=== PATIENT | female | born 1975 | race Caucasian/White ===

== ENCOUNTER 2017-02-21 01:28 | Emergency (ER) | payer MEDICAID ==
[~2017-02-21] VITALS: Ht 160 cm; Wt 79.1 kg
[~2017-02-21 01:28] MED LIST: LORT5TAB PO; Z.0.NO CURRENT MEDS
[2017-02-21 01:31] VITALS: BP 143/84; PULSE 85; RESP 16; TEMP 97.6; O2SAT 100
[2017-02-21] MEDS ORDERED: ADDE10 PO (01:44)
--- NOTE | 2017-02-21 02:15 | RADRPT ---
EXAM DATE/TIME: 02/21/2017 01:45 [place] COMPARISON: No previous studies available for comparison. INDICATIONS : Right shoulder pain. MEDICAL HISTORY : None. SURGICAL HISTORY : None. ENCOUNTER: Initial ACUITY: 1 day PAIN SCORE: 8/10 LOCATION: Right shoulder. FINDINGS: Multiple view examination of the right shoulder demonstrates no evidence of fracture or dislocation. The glenohumeral and acromioclavicular joints are maintained. There is normal range of motion betwe en internal and external rotation. Bony mineralization is normal. CONCLUSION: 1. Negative examination of the shoulder. Alex Valderrama MD on February 21, 2017 at 2:11 Board Certified Radiologist. This report was verified electronically.
[2017-02-21] MEDS ORDERED: IBUPROFEN 800 MG TAB PO ONE (03:30)
[2017-02-21] MEDS ORDERED: IBUP1TAB7 PO (03:41)
--- NOTE | 2017-02-21 03:41 | PD ---
HPI Chief Complaint: Injury Time Seen by Provider: 03:29 Travel History International Travel<30 days: No Contact w/Intl Traveler<30days: No Traveled to known affect area: No History of Present Illness HPI 41-year-old female presents to the emergency department by private transportation for complaint of right shoulder pain. Patient states she was at [place] with her twin grandchildren and when she reached to adjust the stroller with her right upper extremity she developed pain and a cramping type pain that worsened with attempted range of motion. Patient feels as if her shoulder joint is stuck in place. Patient denies any distal numbness tingling or weakness. Patient denies any deformity or swelling. Patient denies any neck pain. Patient denies any previous shoulder shoulder surgery or shoulder injury. Patient came to the emergency room to have an x-ray. Patient took no medications prior to coming to the emergency room. Patient notes limited range of motion of the extremity due to pain that prevents range of motion involving the right shoulder. Patient took no medications prior to arrival to the emergency department. Patient is right-handed. Patient rates pain 9-10 over 10 intensity at rest and with range of motion. PFSH Past Medical History Narrative Medical ADD ovarian cysts D&C ; tobacco use; nursing notes reviewed ADD: Yes Diminished Hearing: No Immunizations Current: No Tetanus Vaccination: > 5 Years Influenza Vaccination: No ?: Not LMP: 5 DAYS AGO, HAS IRREGULAR PERIODS Menopausal: No Ovarian Cysts: Yes ( 2) Dilation and Curettage (D&C): Yes ( 2) Past Surgical History Section: Yes (X2) Gynecologic Surgery: Yes (CYSTS REMOVED FROM BILAT. OVARIES) Oral Surgery: Yes (C.SECTION 2) Social History Alcohol Use: No Tobacco Use: Yes (2-3 CIGARETTES DAILY, X 17 YEARS) Substance Use: No Allergies-Medications (Allergen,Severity, Reaction): Coded Allergies: amoxicillin (Unverified Allergy, Mild, RASH, 02/21/17) penicillin G (Unverified Adverse Reaction, Intermediate, RASH, 02/21/17) Reported Meds & Prescriptions Reported Meds & Active Scripts Active Ibuprofen 800 Mg Tab 800 Mg PO Q8H PRN Reported Adderall (Amphetamine-Dextroamphetamine) 10 Mg Tab 10 Mg PO DAILY Avoid late evening doses. Space doses at least 4 to 6 hours if more than once/day dosing. Review of Systems Except as stated in HPI: all other systems reviewed are Neg General / Constitutional: No: Fever HENT: No: Congestion, Neck Pain Cardiovascular: No: Chest Pain or Discomfort Respiratory: No: Shortness of Breath Gastrointestinal: No: Abdominal Pain Genitourinary: No: Flank Pain Musculoskeletal: Positive: Limited ROM, Pain (right shoulder right shoulder), No: Myalgias, Arthralgias, Weakness, Cramping Skin: No Rash Neurologic: No: Weakness, Paresthesia Hematologic/Lymphatic: No: Lymph Node Enlargement Physical Exam Narrative GENERAL: Well-developed well-nourished female in no acute distress no respiratory distress SKIN: Warm and dry. HEAD: Normocephalic. EYES: No scleral icterus. No injection or drainage. NECK: Supple, trachea midline. No JVD or lymphadenopathy. CARDIOVASCULAR: Regular rate and rhythm without murmurs, gallops, or rubs. RESPIRATORY: Breath sounds equal bilaterally. No accessory muscle use. GASTROINTESTINAL: Abdomen soft, non-tender, nondistended. MUSCULOSKELETAL: No cyanosis, or edema. Attention right shoulder no soft tissue swelling no ecchymosis no edema no erythema decreased range of motion specifically with abduction and extension intact internal rotation increased pain with external rotation distally extremity is neurovascular tendon intact with 2+ radial and ulnar pulses capillary refill brisk and less than 2 seconds per digit thumb apposition intact. Sensory exam intact and wrist function and extension intact. No deformity. BACK: Nontender without obvious deformity. No CVA tenderness. Data Data Last Documented VS Vital Signs Date Time Temp Pulse Resp B/P (MAP) Pulse Ox O2 Delivery O2 Flow Rate FiO2 02/21/17 03:49 88 18 138/84 (102) 99 02/21/17 01:31 97.6 Orders Orders Shoulder, Complete (>2vws) (02/21/17 01:42) Ibuprofen (Motrin) (02/21/17 03:30) Splint Or Brace Apply/Monitor (02/21/17 03:41) Ed Discharge Order (02/21/17 03:42) Sling Cradle Arm (02/21/17 ) MDM Medical Decision Making Medical Screen Exam Complete: Yes Emergency Medical Condition: Yes Medical Record Reviewed: Yes Interpretation(s) Last Impressions Shoulder X-Ray 02/21/17 0144 Signed Impressions: Service Date/Time: Tuesday, February 21, 2017 01:45 - CONCLUSION: 1. Negative examination of the shoulder. Alex Valderrama MD Differential Diagnosis Sprain strain acromioclavicular joint separation rotator cuff injury bursitis tendinitis Narrative Course Ice pack applied sling applied imaging studies ordered Imaging study reveals no acute bony abnormality Patient given ibuprofen 800 mg by mouth times one dose Patient is stable for outpatient management and provided a sling for support Diagnosis Primary Impression: Right shoulder tendonitis Referrals: Orthopedist call for appointment Patient Instructions: General Instructions Additional Instructions: Apply ice to affected shoulder intermittently for next 12-24 hours Wear sling Take ibuprofen 800 mg as often as every 8 hours for any associated with inflammation or fever 100.4F or greater May use acetaminophen/Tylenol every 4-6 hours as needed for mild pain Follow-up with her the pedis Return to the emergency department for any concerns or change in condition Med/Other Pt SpecificInfo: Prescription(s) given Scripts Ibuprofen (Ibuprofen) 800 Mg Tab 800 MG PO Q8H Y for PAIN GREATER THAN 5, #15 TAB 0 Refills Prov: Dalila Conroy MD 02/21/17 Disposition: DISCHARGE HOME Condition: Stable Dalila Conroy MD Feb 21, 2017 03:41
[2017-02-21 03:49] VITALS: BP 138/84
== END 2017-02-21 03:51 | disposition home or self-care (01) ==
LOC: PHED 01:28
DX: M75.91 Shoulder lesion, unspecified, right shoulder (principal); F17.210 Nicotine dependence, cigarettes, uncomplicated
CPT/HCPCS: 73030; 99283